=== PATIENT | female | born 1990 | race Caucasian/White ===

== ENCOUNTER 2017-06-15 15:54 | Inpatient (IN) ==
[2017-06-15] MEDS ORDERED: NORMAL SALINE 10 ML SYRINGE FLUSH IVP PRN (16:14)
[2017-06-15] MEDS ORDERED: Sodium Chloride 0.9% 1,000 ML PRIMARY IV ONE (16:33)
[2017-06-15] MEDS: Sodium Chloride 0.9% 1,000 ML PRIMARY IV SCH ×2 (16:50→17:45)
[2017-06-15] MEDS ORDERED: Metoclopramide Inj 10 MG/2 ML VIAL ONE ×2 (19:49)
[2017-06-15] MEDS ORDERED: CITRIC ACID/SODIUM CITRATE 30 ML CUP PO ONE (19:49)
[2017-06-15] MEDS ORDERED: Lactated Ringers 1,000 ML PRIMARY IV ONE (19:50)
[2017-06-15] MEDS ORDERED: FAMOTIDINE 20 MG/2 ML VIAL IVP ONE ×2 (19:50)
[2017-06-16] MEDS ORDERED: Metoclopramide Inj 10 MG/2 ML VIAL IV ONE (05:31)
[2017-06-16] MEDS ORDERED: LIDOCAINE HCL 2 % 10 ML JELLY URO-JECT TOPICAL PRN (05:31)
[2017-06-16] MEDS ORDERED: NORMAL SALINE 10 ML SYRINGE FLUSH IVP PRN ×3 (05:31→08:00)
[2017-06-16] MEDS ORDERED: LIDOCAINE W/ SODIUM BICARB 0.5 ML SYR SUBD PRN ×2 (05:31→06:01)
[2017-06-16] MEDS ORDERED: Famotidine Inj 20 MG in Normal Saline Flush 10 ML IVP ONE (05:31)
[2017-06-16] MEDS ORDERED: Lactated Ringers 1,000 ML PRIMARY IV ONE ×2 (05:31→06:14)
[2017-06-16] MEDS ORDERED: CefOXitin Inj 2 GM in Sodium Chloride 0.9% 100 ML IV ONE (05:31)
[2017-06-16] MEDS ORDERED: CITRIC ACID/SODIUM CITRATE 30 ML CUP PO ONE ×2 (05:31→05:45)
[2017-06-16] MEDS ORDERED: Lactated Ringers 1,000 ML PRIMARY IV SCH ×2 (05:45→06:15)
[2017-06-16] MEDS ORDERED: Oxytocin 20 Units + LR 20 UNIT/1,000 ML BAG IV SCH ×2 (05:45→08:00)
[2017-06-16] MEDS ORDERED: FAMOTIDINE 20 MG/2 ML VIAL IVP ONE (05:45)
[2017-06-16] MEDS ORDERED: Metoclopramide Inj 10 MG/2 ML VIAL ONE (05:45)
[2017-06-16 05:55] LABS: Hematocrit [HCT] 41.7 % (37.0-47.0); Hemoglobin [HGB] 13.8 g/dL (12.0-16.0); MEAN CORPUSCULAR HEMOGLOBIN 31.4 PG (27-31); MEAN CORPUSCULAR HGB CONC 33.1 g/dL (33-37); MEAN CORPUSCULAR VOLUME 94.8 FL (81-99); MEAN PLATELET VOLUME 10.2 FL (7.4-12.2); RED BLOOD COUNT 4.4 10^6/uL (4.20-5.40)
[2017-06-16] MEDS ORDERED: ONDANSETRON 4 MG/2 ML VIAL IVP PRN ×2 (06:01→08:00)
[2017-06-16] MEDS ORDERED: HYDROmorphone 2 MG/1 ML IVP PRN (06:01)
[2017-06-16] MEDS ORDERED: fentaNYL Inj 100 MCG/2 ML VIAL IVP PRN (06:01)
[2017-06-16] MEDS ORDERED: Sodium Chloride 0.9% 100 ML IV ONE (06:12)
[2017-06-16] MEDS ORDERED: OXYTOCIN 10 UNIT/1 ML ONE (06:13)
[2017-06-16] MEDS ORDERED: ePHEDrine Inj 50 MG/ML AMP ONE (06:13)
[2017-06-16] MEDS ORDERED: METHYLERGONOVINE MALEATE 0.2 MG/1 ML VIAL IM ONE (06:46)
--- NOTE | 2017-06-16 07:17 | OB.OP.NOTE ---
Operative Report Surgeon: Pravin Forensic Chemist: Hugo Barreto MD Anesthesia Type: Regional Anesthesia Provider: Gilberto Fuller CRNA Surgery Date: 06/16/17 Preoperative Diagnosis: Previous x2. Persistent contractions at 37 4/ 7 weeks EGA. Postoperative Diagnosis: Same Procedure: Repeat LTCS Estimated Blood Loss (mL): 700 Fluids: 1000 ml Complications: None Findings at Surgery: Viable female infant, Apgars 10/10. CHRISTINE position. Normal uterus, tubes and ovaries. Indications for the Procedure: The patient was seen in the office for a BRENT visit yesterday. She c/o contractions and was sent to L&D for hydration. She was observed overnight due to remote residence >[place] miles away with 2 previous deliveries. The contractions abated during the night, but resumed this AM with cervical change. The decision was therefore made to proceed with repeat this AM. Description of Procedure: See dictated operative report. Plan: Routine care.
--- NOTE | 2017-06-16 07:21 | CRNA.PROCE ---
Central Neuraxis Block Placemt - - Safety Measures: Time Out Taken, Site Verified - - Type of Block: Subarachnoid Reason for Block: Surgical Moniters Used During Block: EKG, SPO2, NIBP Positioning: Sitting Skin Prep Used: Betadine Skin Infiltration - Enter Amount Used in Comment Field: 1% Xylocaine (mL): Yes ( wheal) Introducer User: 23 Gauge Spinal Needle Used: 25 Fredy 80 mm Local Anesthetic - Enter Amount Used in Comment Field: 0.75 % Bupivacaine with Dextrose (ml): Yes (15mg) Anesthesia Time - Other Weight: 127.913 kg Height: 5 ft 9 in Body Mass Index (BMI): 41.6
--- NOTE | 2017-06-16 07:22 | CRNA.PROGR ---
Anesthesia Recovery Phase I - Post Anesthesia Evaluation Patient's Condition on Arrival in Phase I: Stable Pain Level: 0
--- NOTE | 2017-06-16 07:23 | CRNA.PROGR ---
Anesthesia Time - - Start date: 06/16/17 End date: 06/16/17 - Procedure/Recovery Time Anesthesia : Time In: 06:18 Anesthesia : Time Out: 07:15 Anesthesia : Total Time: 57 - Total Anesthesia Time Total Anesthesia Time (minutes): 57 - Other Weight: 127.913 kg Height: 5 ft 9 in Body Mass Index (BMI): 41.6 Physical Status: P2 Obstetrics: C/S anesthesia only
[2017-06-16] MEDS ORDERED: diphenhydrAMINE 25 MG CAPSULE PO PRN (08:00)
[2017-06-16] MEDS ORDERED: Naloxone Inj 0.01 MG, Sodium Chloride 0.9% vial 1 ML IVP PRN ×2 (08:00)
[2017-06-16] MEDS ORDERED: DIPH,PERTUSS,TET(ADACEL) VAC/PF 0.5 ML (Tdap) IM ONE (08:00)
[2017-06-16] MEDS ORDERED: LANOLIN HPA 40 GM TUBE TOPICAL PRN (08:00)
[2017-06-16] MEDS ORDERED: Famotidine Inj 20 MG in Normal Saline Flush 10 ML IVP PRN (08:00)
[2017-06-16] MEDS ORDERED: diphenhydrAMINE 50 MG/1 ML VIAL IV PRN (08:00)
[2017-06-16] MEDS ORDERED: CALCIUM CARBONATE 500 MG (TUMS) CHEWABLE TABLET PO PRN (08:00)
[2017-06-16] MEDS ORDERED: Nalbuphine Inj 20 MG/ML Ampule IVP PRN (08:00)
[2017-06-16] MEDS: D5-LR 1,000 ML PRIMARY IV SCH ×2 (08:18→18:30)
[2017-06-16] MEDS: KETOROLAC 15 MG/1 ML VIAL IVP SCH ×3 (08:19→20:42)
[2017-06-16] MEDS: oxyCODONE-ACETAMINOPHEN 5-325 TAB PO PRN ×3 (08:19→22:46)
[2017-06-17] MEDS: oxyCODONE-ACETAMINOPHEN 5-325 TAB PO PRN ×3 (03:08→16:15)
[2017-06-17] MEDS: KETOROLAC 15 MG/1 ML VIAL IVP SCH ×2 (03:08→09:52)
[2017-06-17 05:39] LABS: Hematocrit [HCT] 36.2 % (37.0-47.0); Hemoglobin [HGB] 11.7 g/dL (12.0-16.0); MEAN CORPUSCULAR HEMOGLOBIN 30.9 PG (27-31); MEAN CORPUSCULAR HGB CONC 32.3 g/dL (33-37); MEAN CORPUSCULAR VOLUME 95.5 FL (81-99); MEAN PLATELET VOLUME 10.7 FL (7.4-12.2); RED BLOOD COUNT 3.79 10^6/uL (4.20-5.40)
--- NOTE | 2017-06-17 09:07 | OB.PROGRES ---
Subjective Post Op Day: 1 Pain Management: PO Flatus: Yes Diet: Regular Feeding Method: Exculsively Ambulating: Yes Concerns / Additional Information: The patient is doing very well this morning. She is tolerating regular diet and ambulating well. No voiding difficulty. Assesstment / Plan Assessment / Plan: POD 1, doing well. CCM.
[2017-06-17] MEDS: Senna/Docusate Tab 1 TAB TAB PO SCH ×2 (09:53→20:56)
[2017-06-17] MEDS: Prenatal Multivitamin Tab 1 TAB TAB PO SCH (09:53)
--- NOTE | 2017-06-17 10:26 | CRNA.PROGR ---
Anesthesia Note - Progress Notes Anesthesia Progress Note: Pos OP Anesthesia Note Pt is up ambulating, tolerating regular diet, denies pain. She denies any residual problems from the SAB. Current VS are stable. Vital Signs (Last 8 hours) Temp Pulse Resp BP BP Pulse Ox 06/17/17 10:03 97.9 F 79 20 114/67 97 06/17/17 05:09 97 06/17/17 04:54 97.8 F 64 16 100/51 99
[2017-06-17] MEDS: D5-LR 1,000 ML PRIMARY IV SCH (16:09)
[2017-06-17] MEDS: IBUPROFEN 800 MG TABLET PO PRN (19:00)
[2017-06-18 02:01] VITALS: RESP 16
[2017-06-18] MEDS: IBUPROFEN 800 MG TABLET PO PRN ×2 (03:46→11:29)
[2017-06-18] MEDS: oxyCODONE-ACETAMINOPHEN 5-325 TAB PO PRN ×3 (03:46→11:30)
--- NOTE | 2017-06-18 07:29 | DCSUMMARY ---
Hospitalization Summary Admit Date: 06/16/17 Discharge Date: 06/18/17 Primary Diagnosis:: Term , Previous Secondary Diagnosis:: Same Primary Surgery and Date: Repeat LTCS 06/16/17 Delivery Type: Hospital Course: Uncomplicated repeat LTCS. course unremarkable. DC to home on POD 2 in good condition. / Postop Complications: None Complications: None Exam - Vitals Vital Signs: Vital Signs Temperature 97.6 F Temperature Source Oral Pulse Rate [Pulse Oximeter] 110 Pulse Rate 83 Respiratory Rate 16 Blood Pressure [Left Arm] 113/73 Blood Pressure [Right Arm] 100/51 Blood Pressure 131/77 Pulse Ox 98 Oxygen Flow Rate RA Oxygen Delivery Method Room Air Height 5 ft 9 in Weight 282 lb
--- NOTE | 2017-06-18 07:30 | OB.PROGRES ---
Subjective Post Op Day: 2 Pain Management: PO Olivera Catheter: No Flatus: Yes Diet: Regular Feeding Method: Exculsively Ambulating: Yes Concerns / Additional Information: The patient is doing very well. She has no complaints, and is ready for discharge. Assesstment / Plan Assessment / Plan: POD 2, doing well. Discharge to home in good condition.
[2017-06-18] MEDS: Senna/Docusate Tab 1 TAB TAB PO SCH (09:08)
[2017-06-18] MEDS: Prenatal Multivitamin Tab 1 TAB TAB PO SCH (09:08)
[2017-06-18 09:12] VITALS: BP 107/64; TEMP 97.8; O2SAT 97
== END 2017-06-18 11:50 | disposition home or self-care (01) | DRG 766 ==
LOC: OBOP 15:54 → OBOR 06-16 05:43 → OBIP 06-16 07:14
PROVIDERS: ADMIT Obstetrics & Gynecology; ATTEND Obstetrics & Gynecology